=== PATIENT | female | born 1995 | race Caucasian/White ===

== ENCOUNTER 2017-10-24 00:30 | Emergency (ER) | payer BC ==
[2017-10-24] MEDS ORDERED: ONDANSETRON 4 MG/2 ML VIAL ONE (00:43)
[2017-10-24] MEDS ORDERED: FAMOTIDINE 20 MG/2 ML SDV IVP ONE (00:45)
[2017-10-24] MEDS ORDERED: NS 1,000 ML IV ONE (00:45)
[2017-10-24] MEDS ORDERED: ONDANSETRON 4 MG/2 ML VIAL IVP ONE (00:45)
--- NOTE | 2017-10-24 00:46 | EDPHY ---
H & P Stated Complaint: N/V/D ABD PAIN X 3 DAYS Time Seen by Provider: 10/24/17 00:45 HPI/ROS: HPI CHIEF COMPLAINT: Nausea, vomiting, diarrhea HISTORY OF PRESENT ILLNESS: Patient is a 22-year-old female, she presents emergency room nausea vomiting and diarrhea x3 days. Patient reports that on Monday this started she 1st noticed she was very nauseous then she started vomiting. The vomiting has continued over the past 3 days. She states she is unable to tolerate p.o.. She additionally reports abdominal cramping diffusely. Additionally reports watery stool diarrhea no blood. Denies melena or hematemesis. Denies fever. Denies chest pain or shortness of breath. Decided come the emergency room as she could not tolerate p.o. Fluids. Past Medical History: Denies medical history Past Surgical History: Denies surgical history Social History: Occasional alcohol use, student visiting from [place], denies illicit drugs or alcohol. Did have 1 glass of wine on Monday. Family History: Noncontributory ROS REVIEW OF SYSTEMS: A comprehensive 10 point review of systems is otherwise negative aside from elements mentioned in the history of present illness. Exam Constitutional nontoxic appearing, triage nursing summary reviewed, vital signs reviewed, awake/alert. Eyes normal conjunctivae and sclera, EOMI, PERRLA. HENT normal inspection, atraumatic, moist mucus membranes, no epistaxis, neck supple/ no meningismus, no raccoon eyes. Respiratory clear to auscultation bilaterally, normal breath sounds, no respiratory distress, no wheezing. Cardiovascular rate normal, regular rhythm, no murmur, no edema, distal pulses normal. Gastrointestinal no significant tenderness on exam, soft, non-tender, no rebound, no guarding, normal bowel sounds, no distension, no pulsatile mass. Genitourinary no CVA tenderness. Musculoskeletal no midline vertebral tenderness, full range of motion, no calf swelling, no tenderness of extremities, no meningismus, good pulses, neurovascularly intact. Skin pink, warm, & dry, no rash, skin atraumatic. Neurologic awake, alert and oriented x 3, AAOx3, moves all 4 extremities equally, motor intact, sensory intact, CN II-XII intact, normal cerebellar, normal vision, normal speech. Psychiatric normal mood/affect. Heme/Lymph/Immune no lymphadenopathy. Differential diagnosis includes but is not limited to and in no particular order : Bowel obstruction, appendicitis, gallbladder disease, diverticulitis, colitis , enteritis, perforated viscus, gastritis, GERD, esophagitis, urinary tract infection, pyelonephritis, kidney stones Medical Decision Making: Plan for this patient IV establishment IV fluid bolus , IV Zofran for nausea, IV Pepcid 20 mg for GI upset, up check urinalysis, check electrolytes, and re-evaluate. Re-evaluation: 0258: Patient re-evaluated resting comfortably in no acute distress. Re- examination her abdomen is soft nontender she is not vomiting. She p. O. Challenge well. She feels much better after IV fluid 1 L normal saline, 4 mg IV Zofran, and 20 mg IV Pepcid. We discussed return precautions she understands return emergency room if develops worsening abdominal pain fever or vomiting she should be on a bland diet over the next 48 hr no spicy fatty greasy foods return of worsening abdominal pain fever vomiting she understands. Clinically most likely has a viral illness or viral GI illness. Source: Patient - Personal History LMP (Females 10-55): Now Current Tetanus Diphtheria and Acellular Pertussis (TDAP): Yes - Medical/Surgical History Hx Asthma: No Hx Chronic Respiratory Disease: No Hx Diabetes: No Hx Cardiac Disease: No Hx Renal Disease: No Hx Cirrhosis: No Hx Alcoholism: No Hx HIV/AIDS: No Hx Splenectomy or Spleen Trauma: No Other PMH: DENIES - Social History Smoking Status: Never smoked Constitutional: Initial Vital Signs Temperature (C) 36.3 C 10/24/17 00:35 Heart Rate 75 10/24/17 00:35 Respiratory Rate 16 10/24/17 00:35 Blood Pressure 115/73 10/24/17 00:35 O2 Sat (%) 98 10/24/17 00:35 O2 Delivery Mode Room Air Allergies/Adverse Reactions: No Known Allergies Allergy (Unverified 10/24/17 00:35) Home Medications: Medication Instructions Recorded Control 10/24/17 Medical Decision Making - Data Points Laboratory Results: Laboratory Results 10/24/17 00:40 10/24/17 00:40 10/24/17 10/24/17 10/24/17 00:45 00:40 00:40 WBC RBC Hgb Hct MCV MCH MCHC RDW Plt Count MPV Neut % (Auto) Lymph % (Auto) Hardy % (Auto) Eos % (Auto) Baso % (Auto) Nucleat RBC Rel Count Absolute Neuts (auto) Absolute Lymphs (auto) Absolute Monos (auto) Absolute Eos (auto) Absolute Basos (auto) Absolute Nucleated RBC Immature Gran % Immature Gran # Sodium 140 mEq/L mEq/L (135-145) Potassium 3.8 mEq/L mEq/L (3.3-5.0) Chloride 105 mEq/L mEq/L (97-110) Carbon Dioxide 22 mEq/l mEq/l (22-31) Anion Gap 13 mEq/L mEq/L (8-16) BUN 7 mg/dL mg/dL (7-23) Creatinine 0.6 mg/dL mg/dL (0.6-1.0) Estimated GFR > 60 Glucose 78 mg/dL mg/dL (70-100) Calcium 9.8 mg/dL mg/dL (8.5-10.4) Total Bilirubin 0.6 mg/dL mg/dL (0.1-1.4) Conjugated Bilirubin 0.3 mg/dL mg/dL (0.0-0.5) Unconjugated Bilirubin 0.3 mg/dL mg/dL (0.0-1.1) AST 28 IU/L IU/L (14-46) ALT 38 IU/L IU/L (9-52) Alkaline Phosphatase 52 IU/L IU/L (38-126) Total Protein 7.8 g/dL g/dL (6.3-8.2) Albumin 4.7 g/dL g/dL (3.5-5.0) Lipase 191 IU/L IU/L (23-300) Beta HCG, Qual NEGATIVE Urine Color YELLOW Urine Appearance CLEAR Urine pH 5.0 (5.0-7.5) Ur Specific [place] 1.008 (1.002-1.030) Urine Protein NEGATIVE (NEGATIVE) Urine Ketones 1+ H (NEGATIVE) Urine Blood NEGATIVE (NEGATIVE) Urine Nitrate NEGATIVE (NEGATIVE) Urine Bilirubin NEGATIVE (NEGATIVE) Urine Urobilinogen NEGATIVE EU EU (0.2-1.0) Ur Leukocyte Esterase NEGATIVE (NEGATIVE) Urine Glucose NEGATIVE (NEGATIVE) 10/24/17 00:40 WBC 12.76 10^3/uL H 10^3/uL (3.80-9.50) RBC 4.48 10^6/uL 10^6/uL (4.18-5.33) Hgb 14.6 g/dL g/dL (12.6-16.3) Hct 41.7 % % (38.0-47.0) MCV 93.1 fL fL (81.5-99.8) MCH 32.6 pg pg (27.9-34.1) MCHC 35.0 g/dL g/dL (32.4-36.7) RDW 11.7 % % (11.5-15.2) Plt Count 293 10^3/uL 10^3/uL (150-400) MPV 9.4 fL fL (8.7-11.7) Neut % (Auto) 78.6 % H % (39.3-74.2) Lymph % (Auto) 15.4 % % (15.0-45.0) Hardy % (Auto) 5.3 % % (4.5-13.0) Eos % (Auto) 0.2 % L % (0.6-7.6) Baso % (Auto) 0.3 % % (0.3-1.7) Nucleat RBC Rel Count 0.0 % % (0.0-0.2) Absolute Neuts (auto) 10.03 10^3/uL H 10^3/uL (1.70-6.50) Absolute Lymphs (auto) 1.97 10^3/uL 10^3/uL (1.00-3.00) Absolute Monos (auto) 0.67 10^3/uL 10^3/uL (0.30-0.80) Absolute Eos (auto) 0.02 10^3/uL L 10^3/uL (0.03-0.40) Absolute Basos (auto) 0.04 10^3/uL 10^3/uL (0.02-0.10) Absolute Nucleated RBC 0.00 10^3/uL 10^3/uL (0-0.01) Immature Gran % 0.2 % % (0.0-1.1) Immature Gran # 0.03 10^3/uL 10^3/uL (0.00-0.10) Sodium Potassium Chloride Carbon Dioxide Anion Gap BUN Creatinine Estimated GFR Glucose Calcium Total Bilirubin Conjugated Bilirubin Unconjugated Bilirubin AST ALT Alkaline Phosphatase Total Protein Albumin Lipase Beta HCG, Qual Urine Color Urine Appearance Urine pH Ur Specific [place] Urine Protein Urine Ketones Urine Blood Urine Nitrate Urine Bilirubin Urine Urobilinogen Ur Leukocyte Esterase Urine Glucose Medications Given: Discontinued Medications Famotidine (Pepcid) 20 mg IVP EDNOW ONE Stop: 10/24/17 00:46 Last Admin: 10/24/17 00:47 Dose: 20 mg Sodium Chloride (Ns) 1,000 mls @ 0 mls/hr IV EDNOW ONE; Wide Open PRN Reason: Protocol Stop: 10/24/17 00:46 Last Admin: 10/24/17 00:46 Dose: 1,000 mls Ondansetron HCl (Zofran) 4 mg IVP EDNOW ONE Stop: 10/24/17 00:46 Last Admin: 10/24/17 00:46 Dose: 4 mg Departure - Departure Disposition: Home, Routine, Self-Care Clinical Impression: Vomiting and diarrhea Condition: Good Instructions: Acute Nausea and Vomiting (ED), Dehydration (ED) Additional Instructions: 1. Return emergency room if you have worsening abdominal pain vomiting or fever 2. [place] diet over the next 48 hr no spicy fatty greasy foods. Referrals: NONE *PRIMARY CARE P,. [Primary Care Provider] - As per Instructions [facility],. [Clinic] - As per Instructions
[2017-10-24 01:05] LABS: PLATELET COUNT 293 10^3/uL (150-400)
[2017-10-24] MEDS ORDERED: KETOROLAC 15 MG/1 ML SDV IVP ONE (03:22)
[2017-10-24] MEDS ORDERED: IOPAMIDOL (ISOVUE-300) 100 ML BTL ONE (03:25)
[2017-10-24 07:07] VITALS: BP 115/60
== END 2017-10-24 04:37 | disposition home or self-care (01) ==
DX: R11.10 Vomiting, unspecified (principal); R19.7 Diarrhea, unspecified; E86.9 Volume depletion, unspecified
CPT/HCPCS: 96374; J1885; J2405; Q9967